=== PATIENT | male | born 1975 | race Caucasian/White ===

== ENCOUNTER 2018-05-22 20:02 | Emergency (ER) | payer MEDICAID ==
[2018-05-22 20:06] VITALS: BMI 28.0
[2018-05-22 20:14] VITALS: TEMP 98.3
[2018-05-22] MEDS ORDERED: Sodium Chloride 0.9% 1,000 ML IV STA (20:24)
--- NOTE | 2018-05-22 20:41 | ED PDOC ---
Arrival/HPI - General Chief Complaint: GI Problem Time Seen by Provider: 05/22/18 20:23 Historian: Patient - History of Present Illness Narrative History of Present Illness (Text): 05/22/18 20:40 A 43 year old male, with no significant past medical history, presents to the emergency department complaining of diarrhea. Patient reports he was [place] for 1 month and arrived back to the [place] today. States he began experiencing diarrhea prior to leaving, and had episodes during the entire trip back from [place]. He mentions taking Imodium, but has had no relief. Patient denies fever, nausea, vomiting, abdominal pain, or any other complaints at this time. Denies any sick contacts or taking any antibiotics recently. PMD: Dr. Pratima Saravia Past Medical History - Provider Review Nursing Documentation Reviewed: Yes - Travel History Have you recently traveled outside [place] w/in the past 3 mons?: Yes If Yes, travel location?: [place] - Infectious Disease Hx of Infectious Diseases: None - Psychiatric Hx Substance Use: No Family/Social History - Physician Review Nursing Documentation Reviewed: Yes Family/Social History: No Known Family HX Smoking Status: Never Smoked Hx Alcohol Use: Yes Frequency of alcohol use: Socially Hx Substance Use: No Allergies/Home Meds Allergies/Adverse Reactions: Allergies No Known Allergies Allergy (Verified 01/16/16 20:45) Review of Systems - Physician Review All systems were reviewed & negative as marked: Yes - Review of Systems Constitutional: absent: Fevers Gastrointestinal: Diarrhea. absent: Abdominal Pain, Nausea, Vomiting Physical Exam Vital Signs Reviewed: Yes Vital Signs Temp Pulse Resp BP Pulse Ox 05/22/18 20:14 98.3 F 88 18 111/73 95 Temperature: Afebrile Blood Pressure: Normal Pulse: Regular Respiratory Rate: Normal Appearance: Positive for: Well-Appearing, Non-Toxic, Comfortable Pain Distress: None Mental Status: Positive for: Alert and Oriented X 3 - Systems Exam Head: Present: Atraumatic, Normocephalic Pupils: Present: PERRL Extroacular Muscles: Present: EOMI Conjunctiva: Present: Normal Mouth: Present: Dry Neck: Present: Normal Range of Motion Respiratory/Chest: Present: Clear to Auscultation, Good Air Exchange. No: Respiratory Distress, Accessory Muscle Use Cardiovascular: Present: Regular Rate and Rhythm, Normal S1, S2. No: Murmurs Abdomen: No: Tenderness, Distention, Peritoneal Signs Back: Present: Normal Inspection Upper Extremity: Present: Normal Inspection. No: Cyanosis, Edema Lower Extremity: Present: Normal Inspection. No: Edema Neurological: Present: GCS=15, CN II-XII Intact, Speech Normal Skin: Present: Warm, Dry, Normal Color. No: Rashes Psychiatric: Present: Alert, Oriented x 3, Normal Insight, Normal Concentration Medical Decision Making ED Course and Treatment: 05/22/18 20:44 Impression: 43 year old male with diarrhea. Physical exam shows dry mucous membranes; otherwise no other acute findings. Plan: -- Labs -- IV Fluids - NS bolus 1 L -- Reassess and disposition Progress Notes: 05/22/18 22:00 On re-evaluation, patient reports improvement of symptoms, denies any nausea, abdominal pain or any episodes of diarrhea while in the ED. On exam, patient remains AAOx3, in no acute distress. Abdomen soft, non-tender. Lab results reviewed and wnl. Diagnostic results d/w the patient in great detail. Diagnosis of traveler's diarrhea d/w the patient. Given dose of cirpo 500 mg po. Based on history, exam and diagnostic results, plan will be for outpatient follow up. Patient instructed to follow-up with pmd in 1-2 days without fail. Advised to take medication as prescribed. Return to the emergency room at any time for any new or worsening symptoms. Patient states he fully agrees with and understands discharge instructions. States that he agrees with the plan and disposition. Verbalized and repeated discharge instructions and plan. I have given the patient opportunity to ask any additional questions. - Lab Interpretations Lab Results: 05/22/18 20:41 05/22/18 20:41 Lab Results 05/22/18 20:41: Sodium 142, Potassium 3.6, Chloride 106, Carbon Dioxide 22, Anion Gap 18, BUN 15, Creatinine 0.7 L, Est GFR ( Amer) > 60, Est GFR ( Non-Af Amer) > 60, Random Glucose 87, Calcium 8.7, Total Bilirubin 0.5, AST 33, ALT 64 H, Alkaline Phosphatase 94, Total Protein 7.7, Albumin 4.0, Globulin 3.7 , Albumin/Globulin Ratio 1.1, Lipase 11 L 05/22/18 20:41: WBC 7.1 D, RBC 4.85, Hgb 12.9 L, Hct 39.0 L, MCV 80.4, MCH 26.6 , MCHC 33.1, RDW 15.0 H, Plt Count 313, MPV 9.7, Gran % 43.6 L, Lymph % (Auto) 44.6 H, [place] % (Auto) 8.9 H, Eos % (Auto) 2.8, Baso % (Auto) 0.1, Gran # 3.08, Lymph # (Auto) 3.2, [place] # (Auto) 0.6, Eos # (Auto) 0.2, Baso # (Auto) 0.01 - Medication Orders Current Medication Orders: Discontinued Medications Sodium Chloride (Sodium Chloride 0.9%) 1,000 mls @ 1,000 mls/hr IV .Q1H STA Stop: 05/22/18 21:23 Last Admin: 05/22/18 20:42 Dose: 1,000 mls/hr eMAR Start Stop Document 05/22/18 20:42 SS (Rec: 05/22/18 20:43 SS [id number]) Intravenous Solution Start Date 05/22/18 Start Time 20:43 End Date 05/22/18 End time 21:43 Total Infusion Time 60 - PA / HAT MENDER / Resident Statement MD/DO has reviewed & agrees with the documentation as recorded. - Scribe Statement The provider has reviewed the documentation as recorded by the Rosemarie Holder Provider Scribe Provider Scribe Attestation: All medical record entries made by the Staciaibsharri were at my direction and personally dictated by me. I have reviewed the chart and agree that the record accurately reflects my personal performance of the history, physical exam, medical decision making, and the department course for this patient. I have also personally directed, reviewed, and agree with the discharge instructions and disposition. Disposition/Present on Arrival - Present on Arrival Any Indicators Present on Arrival: No History of DVT/PE: No History of Uncontrolled Diabetes: No Urinary Catheter: No History of Decub. Ulcer: No History Surgical Site Infection Following: None - Disposition Have Diagnosis and Disposition been Completed?: Yes Diagnosis: Travelers' diarrhea Disposition: HOME/ ROUTINE Disposition Time: 22:00 Patient Plan: Discharge Patient Problems: Current Active Problems Problem Status Onset Travelers' diarrhea Acute Condition: STABLE Discharge Instructions (ExitCare): Diarrhea and Traveler's Diarrhea, Adult (DC) Additional Instructions: Thank you for letting us take care of you today. You were treated for traveler' s diarrhea. The emergency medical care you received today was directed at your acute symptoms. If you were prescribed any medication, please fill it and take as directed. It may take several days for your symptoms to resolve. Return to the Emergency Department if your symptoms worsen, do not improve, or if you have any other problems. Please contact your doctor in 2 days for re-evaluation and follow up. Bring any paperwork you were given at discharge with you along with any medications you are taking to your follow up visit. Our treatment cannot replace ongoing medical care by a primary care provider (PCP) outside of the emergency department. Thank you for allowing the [facility] team to be part of your care today. Prescriptions: Ciprofloxacin [Cipro] 500 mg PO BID #6 tab Referrals: Pratima Saravia MD [Primary Care Provider] - Follow up with primary Forms: [employer] 2000 (Telugu), WORK NOTE
[2018-05-22 21:01] LABS: BASO # 0.01 K/mm3 (0.0-2.0); BASO % 0.1 % (0.0-3.0); EOS # 0.2 (0.0-0.7); EOS % 2.8 % (1.5-5.0); GRAN # 3.08 (1.4-6.5); GRAN % 43.6 % (50.0-68.0); HEMOGLOBIN 12.9 g/dL (14.0-18.0); LYMPH # 3.2 (1.2-3.4); LYMPH % 44.6 % (22.0-35.0); MEAN CELL VOLUME 80.4 fl (80.0-105.0); MEAN CORPUSCULAR HEMOGLOBIN 26.6 pg (25.0-35.0); MEAN CORPUSCULAR HGB CONC 33.1 g/dl (31.0-37.0); MEAN PLATELET VOLUME 9.7 fl (7.0-11.0); MONO # 0.6 (0.1-0.6); MONO % 8.9 % (1.0-6.0); RBC 4.85 10^6/uL (3.5-6.1); WHITE BLOOD COUNT 7.1 10^3/ul (4.5-11.0)
[2018-05-22 21:06] LABS: ALB/GLOB RATIO 1.1 (1.1-1.8); ALT/SGPT 64 U/L (7-56); AST/SGOT 33 U/L (17-59); BLOOD UREA NITROGEN 15 mg/dL (7-21); CALCIUM 8.7 mg/dL (8.4-10.5); GFR AFRICAN-AMERICAN > 60; GFR NON-AFRICAN AMERICAN > 60; LIPASE 11 U/L (23-300)
[2018-05-22 22:40] VITALS: BP 114/70; PULSE 87; RESP 20; O2SAT 98
== END 2018-05-22 22:40 | disposition home or self-care (01) ==
LOC: ED 20:02
DX: R19.7 Diarrhea, unspecified (principal)
CPT/HCPCS: 80053; 83690; 85025; 96360; 99284; J7030